=== PATIENT | female | born 1960 | race Caucasian/White ===

== ENCOUNTER 2020-12-08 13:47 | Emergency (ER) | payer OTHER ==
[2020-12-08 15:20] LABS: BASOPHIL 0.7 % (0-2); EOSINOPHIL 1.1 % (0-5); HCT 39.4 % (37.0-47.0); HGB 12.9 g/dl (12.5-16.0); LYMPHOCYTE 11.4 % (15-48); MCH 30.1 pg (25.0-31.0); MCHC 32.7 g/dL (32.0-36.0); MCV 91.8 fL (78.0-100.0); NEUTROPHIL 73.5 % (41-80); NRBC 0; PLT 373 K/uL (150-400); RBC 4.29 M/uL (4.20-5.40); RDW 13.5 % (11.5-14.0)
[2020-12-08 15:37] LABS: WBC 10.4 K/uL (4.0-10.5)
[2020-12-08 15:42] LABS: LACTIC ACID 1.2 mmol/L (0.4-1.9)
[2020-12-08 15:46] LABS: ALBUMIN 2.7 g/dL (3.4-5.0); BILIRUBIN - TOTAL 0.4 mg/dL (0.2-1.0); CREATININE 7.85 mg/dL (0.51-0.95); GLOBULIN (CALCULATION) 5.6 g/dL; POTASSIUM 3.6 mmol/L (3.5-5.1); TOTAL PROTEIN 8.3 g/dL (6.4-8.2)
[2020-12-08 18:21] LABS: BILIRUBIN 1+ mg/dL (NEGATIVE); BLOOD TRACE-INTACT Ery/uL (NEGATIVE); CLARITY CLEAR (CLEAR); COLOR YELLOW (YELLOW); GLUCOSE (U) NORMAL (NORMAL); LEUKOCYTES NEGATIVE Leu/uL (NEGATIVE); NITRITE NEGATIVE (NEGATIVE); PROTEIN 2+ mg/dL (NEGATIVE); SPECIFIC GRAVITY >=1.030 (1.001-1.030); UROBILINOGEN 0.2 mg/dL (0.2-1.0)
[2020-12-08 18:35] LABS: AMORPHOUS URATES CRYSTALS MODERATE; BACTERIA 3+; SQUAMOUS EPITHELIAL CELLS 20-50
[2020-12-08 18:56] LABS: CREATININE 6.98 mg/dL (0.51-0.95); POTASSIUM 3.5 mmol/L (3.5-5.1)
== END 2020-12-08 21:13 | disposition other institution (70) ==
LOC: FER 13:47
PROVIDERS: Emergency Medicine
DX: A41.9 Sepsis, unspecified organism (principal); K37 Unspecified appendicitis; R65.21 Severe sepsis with septic shock; E83.41 Hypermagnesemia; I10 Essential (primary) hypertension; N17.9 Acute kidney failure, unspecified; Z20.822 Contact with and (suspected) exposure to COVID-19
CPT/HCPCS: 36415; 71250; 80048; 80053; 81001; 82150; 83605; 83690; 83735; 84145; 84484; 85025; 87040; J1170; J2185; J2405; J3370; J7030; J7050; J7120; U0002